=== PATIENT | female | born 1990 | race Hispanic/Latino ===

== ENCOUNTER 2023-04-28 20:46 | Outpatient (CLI) ==
[~2023-04-28] VITALS: Ht 157.5 cm; Wt 92.5 kg
[2023-04-28 21:04] VITALS: BP 124/72
[2023-04-28] MEDS ORDERED: PRENTAB9 PO (21:10)
[2023-04-28 22:02] VITALS: BP 128/87
== END 2023-04-28 21:55 | disposition home or self-care (01) ==
LOC: M LDO 20:46
PROVIDERS: ATTEND Obstetrics & Gynecology
DX: O26.893 Other specified pregnancy related conditions, third trimester (principal); N89.8 Other specified noninflammatory disorders of vagina; Z3A.36 36 weeks gestation of pregnancy
CPT/HCPCS: 59025; 76815; G0463

== ENCOUNTER 2023-05-16 11:32 | Inpatient (IN) | payer OTHER ==
[~2023-05-16] VITALS: Ht 157.5 cm; Wt 92.8 kg
[2023-05-16] VITALS (28 sets, daily range): BP systolic 96–140; BP diastolic 52–83
[~2023-05-16 11:32] MED LIST: PRENTAB9 PO
[2023-05-16] MEDS ORDERED: HOME MED LIST COMPLETE! XX SCH (11:50)
[2023-05-16 12:30] LABS: HEMATOCRIT 39.7 % (36.0-47.0); HEMOGLOBIN 12.9 g/dl (12.0-15.5); MEAN CORPUSCULAR HEMOGLOBIN 27.7 pg (27.0-33.0); MEAN CORPUSCULAR HGB CONC 32.5 g/dl (32.0-36.5); MEAN CORPUSCULAR VOLUME 85.4 fl (80.0-96.0); PLATELET COUNT, AUTOMATED 171 10^3/uL (150-450); RED BLOOD COUNT 4.65 10^6/uL (4.00-5.40); WHITE BLOOD COUNT 9.5 10^3/uL (4.0-10.0)
[2023-05-16] MEDS: LR 1,000 ML IV ONE (13:06)
[2023-05-16] MEDS: LR 1,000 ML IV SCH (13:06)
[2023-05-16] MEDS ORDERED: CARBOPROST TROMETHAMINE 250 MCG/ML AMP IM PRN (14:10)
[2023-05-16] MEDS ORDERED: OXYTOCIN INJ 10UNITS/ML 1ML VIAL IM PRN (14:10)
[2023-05-16] MEDS ORDERED: LR 1,000 ML IV SCH ×2 (14:10→14:20)
[2023-05-16] MEDS ORDERED: TRANEXAMIC ACID INJection 1,000 MG in NS 100 ML IV PRN (14:10)
[2023-05-16] MEDS ORDERED: OXYTOCIN DRIP 30 UNITS in IV 1 EA IV PRN ×3 (14:10)
[2023-05-16] MEDS ORDERED: LIDOCAINE 1% MDV 20ML VIAL INFIL PRN (14:10)
[2023-05-16] MEDS ORDERED: METHYLERGONOVINE MALEATE 0.2MG/ML 1ML VIAL IM PRN (14:10)
[2023-05-16] MEDS: OXYTOCIN DRIP 30 UNITS in IV 1 EA IV SCH (15:10)
[2023-05-16] MEDS: LACTATED RINGER'S 1000 ML IV STA (15:10)
[2023-05-16] MEDS ORDERED: EPIDURAL/PCA KEYS XX PRN (15:30)
[2023-05-16] MEDS ORDERED: NALOXONE INJ 0.4MG/1ML VIAL IV PRN (15:30)
[2023-05-16] MEDS ORDERED: ePHEDrine SULFATE 25 MG/5 ML(5MG/ML) SYRINGE IVP PRN (15:30)
[2023-05-16] MEDS ORDERED: LR 500 ML IV PRN (15:30)
[2023-05-16] MEDS ORDERED: ONDANSETRON 4MG 2ML VIAL IV PRN (15:30)
[2023-05-16] MEDS ORDERED: diphenhydrAMINE 50MG/ML VIAL IV PRN (15:30)
[2023-05-16] MEDS: FENTANYL/ROPIVACAINE/NACL BAG 100 ML EPIDURAL SCH (15:58)
[2023-05-17] VITALS (10 sets, daily range): BP systolic 98–136; BP diastolic 50–81; O2SAT 96–98
[2023-05-17] MEDS ORDERED: ACETAMINOPHEN TAB 650MG DOSE (2X325MG) PO PRN (02:50)
[2023-05-17] MEDS ORDERED: METHYLERGONOVINE MALEATE 0.2 MG TAB PO PRN (02:50)
[2023-05-17] MEDS ORDERED: MOM 30ML SUSPENSION UDC PO PRN (02:50)
[2023-05-17] MEDS ORDERED: LR 1,000 ML IV SCH (02:50)
[2023-05-17] MEDS ORDERED: METOCLOPRAMIDE INJ 10MG/2ML VIAL IV PRN (02:50)
[2023-05-17] MEDS ORDERED: RHOGAM 300MCG (1500IU) INJ IM SCH (02:50)
[2023-05-17] MEDS: OXYTOCIN DRIP 30 UNITS in IV 1 EA IV SCH ×2 (03:10→03:11)
[2023-05-17] MEDS: IBUPROFEN 600MG TAB PO PRN (05:03)
[2023-05-17] MEDS ORDERED: PRENATAL VITAMINS CHEWABLE TABLET PO SCH (09:00)
[2023-05-17] MEDS: PRENATAL VITAMINS CHEWABLE TABLET PO SCH (09:04)
[2023-05-17] MEDS: DOCUSATE SODIUM 100MG CAPSULE PO PRN (09:04)
[2023-05-17] MEDS: ACETAMINOPHEN 500 MG TAB PO PRN (09:04)
[2023-05-17] MEDS: DIBUCAINE 1% OINTMENT 30GM TOP PRN (09:05)
[2023-05-17] MEDS: PROCTOFOAM-HC 1% FOAM 10GM CAN PR PRN (15:26)
[2023-05-17] MEDS: IBUPROFEN 800 MG TAB PO PRN (17:52)
[2023-05-18 05:56] VITALS: BP 121/63; O2SAT 100
[2023-05-19] MEDS ORDERED: MEASLES,MUMPS,RUBELLA VACCINE INJ (MMR-II) SC.IMMUN ONE (09:00)
== END 2023-05-18 14:52 | disposition home or self-care (01) | DRG 806 ==
LOC: M LDI 11:32 → M OBS 05-17 04:30
PROVIDERS: ADMIT Obstetrics & Gynecology; ATTEND Obstetrics & Gynecology
PROC: 10E0XZZ Delivery of Products of Conception, External Approach (ICD-10-PCS; principal; 2023-05-17)
DX: O42.02 Full-term premature rupture of membranes, onset of labor within 24 hours of rupture (principal); Z37.0 Single live birth; O36.0120 Maternal care for anti-D [Rh] antibodies, second trimester, not applicable or unspecified; O41.03X0 Oligohydramnios, third trimester, not applicable or unspecified; Z3A.39 39 weeks gestation of pregnancy; E66.9 Obesity, unspecified; O99.214 Obesity complicating childbirth

== ENCOUNTER 2023-08-17 06:05 | Day surgery (SDC) | payer OTHER ==
[~2023-08-17] VITALS: Ht 157.5 cm; Wt 90.7 kg
[2023-08-17] MEDS ORDERED: LR 1,000 ML IV SCH (06:20)
[2023-08-17] MEDS ORDERED: MIDAZOLAM INJ 2MG/2ML VIAL As Ordered ONE (06:57)
[2023-08-17] MEDS ORDERED: fentaNYL 100 MCG/2 ML INJECTION As Ordered ONE (06:59)
[2023-08-17] MEDS ORDERED: ROCURONIUM BROMIDE 50MG/5ML VIAL As Ordered ONE (07:00)
[2023-08-17] MEDS ORDERED: propofoL 200 MG/20 ML VIAL As Ordered ONE (07:00)
[2023-08-17] MEDS ORDERED: LIDOCAINE 2% 100MG/5ML SDV (FOR ANES.) As Ordered ONE (07:02)
[2023-08-17] MEDS ORDERED: ACETAMINOPHEN 1000MG 100ML IV BAG As Ordered ONE (07:49)
[2023-08-17] MEDS ORDERED: ALBUTEROL 6.7GM INHALER **FOR ANES. CART/OMNICELL ONLY As Ordered ONE (07:50)
[2023-08-17] MEDS ORDERED: KETOROLAC 60MG 2ML VIAL As Ordered ONE (07:52)
[2023-08-17] MEDS ORDERED: ONDANSETRON 4MG 2ML VIAL As Ordered ONE (07:52)
[2023-08-17] MEDS ORDERED: SUGAMMADEX SODIUM 500 MG/5 ML VIAL (BRIDION) As Ordered ONE (07:52)
[2023-08-17] MEDS ORDERED: LABETALOL 100MG/20ML VIAL As Ordered ONE (08:14)
[2023-08-17] MEDS ORDERED: ONDANSETRON 4MG 2ML VIAL IV PRN (08:20)
[2023-08-17] MEDS ORDERED: fentaNYL 100 MCG/2 ML INJECTION IV PRN (08:20)
[2023-08-17] MEDS: LEVALBUTEROL 1.25MG 0.5ML CONCENTRATE NEB NEB ONE (08:38)
[2023-08-17] MEDS: oxyCODONE 5MG TAB PO PRN (08:52)
[2023-08-17] MEDS ORDERED: oxyCODONE 5MG TAB PO PRN (09:05)
[2023-08-17 10:51] VITALS: BP 123/74; TEMP 98.3; O2SAT 97
== END 2023-08-17 10:51 | disposition home or self-care (01) ==
LOC: M SDC 06:05
PROVIDERS: ATTEND Obstetrics & Gynecology
DX: Z30.2 Encounter for sterilization (principal); F41.9 Anxiety disorder, unspecified
CPT/HCPCS: 58661; 81025; 88302; J0131; J0665; J1100; J1885; J1920; J2250; J2405; J3010

== ENCOUNTER → 2023-11-23 | Outpatient (REF) | payer OTHER | LOC: M LAB REF 19:47 | PROVIDERS: ATTEND Physician Assistant | DX: R30.0 Dysuria (principal) ==